=== PATIENT | female | born 1995 | race Caucasian/White ===

== ENCOUNTER → 2024-04-07 | Outpatient (CLI) | payer OTHER ==
[~2024-04-07] MED LIST: ANUS2.5C2 TOP; DOCU5LIQ PO; IBUP-1114 PO; IBUP1TAB7 PO; IBUP600T26 PO; IRON18TA2 PO; MAPA500T17 PO; MAPA500T2 PO; MOM30SS PO; MOTRIN PO; OXYC1TAB23 PO; PNV1TAB6 PO; PRENTAB40 PO; tylenol PO
== END ==
LOC: M PLAIMG 12:20
PROVIDERS: ATTEND Physician Assistant
DX: G93.6 Cerebral edema (principal); R90.89 Other abnormal findings on diagnostic imaging of central nervous system

== ENCOUNTER → 2024-09-14 | Outpatient (CLI) | payer OTHER ==
[2024-09-14 10:21] LABS: HEMATOCRIT 43.9 % (36.0-47.0); MEAN CORPUSCULAR HEMOGLOBIN 28.9 pg (27.0-33.0); MEAN CORPUSCULAR HGB CONC 31.9 g/dl (32.0-36.5); MEAN CORPUSCULAR VOLUME 90.7 fl (80.0-96.0); PLATELET COUNT, AUTOMATED 297 10^3/uL (150-450); RED BLOOD COUNT 4.84 10^6/uL (4.00-5.40); WHITE BLOOD COUNT 7.3 10^3/uL (4.0-10.0)
[2024-09-14 10:44] LABS: ALBUMIN 3.8 G/DL (3.2-5.2); ALKALINE PHOSPHATASE 84 U/L (35-104); ALT/SGPT 10 U/L (7.0-40); AST/SGOT < 8 U/L (<34); BILIRUBIN,TOTAL 0.8 MG/DL (0.3-1.2); BLOOD UREA NITROGEN 17 MG/DL (9-23); CALCIUM LEVEL 9.9 MG/DL (8.5-10.1); CARBON DIOXIDE LEVEL 29 MMOL/L (20-31); CHLORIDE LEVEL 106 MMOL/L (98-107); CHOLESTEROL LEVEL 187 MG/DL (<200); CHOLESTEROL RISK RATIO 4.14 (<5); CREATININE FOR GFR 0.72 MG/DL (0.55-1.30); GLOMERULAR FILTRATION RATE > 60.0 (>60); GLUCOSE, FASTING 75 MG/DL (60-100); HDL CHOLESTEROL 45.1 MG/DL (>40); LDL CHOLESTEROL 130.7 MG/DL (<100); NON-HDL-C 141.9 MG/DL; POTASSIUM SERUM 3.9 MMOL/L (3.5-5.1); SODIUM LEVEL 140 MMOL/L (136-145); TOTAL PROTEIN 7.9 G/DL (5.7-8.2); TRIGLYCERIDES LEVEL 56 MG/DL (<150)
[2024-09-14 10:47] LABS: THYROID STIMULATING HORMONE 1.168 uIU/ML (0.55-4.78)
[2024-09-14 10:48] LABS: FREE T4 1.32 NG/DL (0.89-1.76); TOTAL 25(OH) VITAMIN D 36.1 NG/ML (20.0-100.0)
== END ==
LOC: M WUC 08:28
PROVIDERS: ATTEND Nurse Practitioner Adult Health
DX: I63.9 Cerebral infarction, unspecified (principal); E78.5 Hyperlipidemia, unspecified; R53.83 Other fatigue; E55.9 Vitamin D deficiency, unspecified